=== PATIENT | female | born 1955 | race Caucasian/White ===

== ENCOUNTER 2016-07-06 12:12 | Emergency (ER) | payer MEDICARE ==
[~2016-07-06] VITALS: Ht 165.1 cm; Wt 80.0 kg
[~2016-07-06 12:12] MED LIST: ALLO100T PO; FURO1TAB93 PO; LACT10SO47 PO; PROP10TA26 PO; REST30CA PO; SENN8.8S7 PO; SOMA350T PO; SPIR50TA21 PO; STOO100C PO; VENL75CA44 PO
[2016-07-06 12:22] VITALS: BP 137/88; PULSE 101; RESP 16; TEMP 98.7; O2SAT 99
[2016-07-06 12:33] VITALS: BP 140/76; TEMP 98.7; O2SAT 95
--- NOTE | 2016-07-06 12:47 | PD ---
HPI Chief Complaint: Injury Time Seen by Provider: 12:46 Travel History International Travel<30 days: No Contact w/Intl Traveler<30days: No Traveled to known affect area: No History of Present Illness HPI 61-year-old female presents to the emergency department via EMS after tripping over a table on her porch and falling to her right side today. She reports right shoulder pain and cannot differentiate if she is having right rib pain. Denies neck pain or back pain. She denies hitting her head or loss of consciousness. Denies anticoagulants. Denies paresthesias, loss of sensation to the affected extremity. Reports decreased range of motion of the shoulder secondary to pain. Denies chest pain, shortness of breath, abdominal pain. Denies nausea, vomiting. Pain is aggravated with movement. Decreased while at rest. Patient's that she was given morphine. EMS did apply an arm sling for support. Dr. Rosenbaum is primary care provider. History of cirrhosis of the liver. Allergies to Ambien and codeine. PFSH Past Medical History Autoimmune Disease: Yes Blood Disorders: No Anxiety: Yes Depression: Yes Cancer: Yes (uterine & LEFT BREAST) Cardiovascular Problems: No Chemotherapy: No Cirrhosis: Yes Diabetes: No Diminished Hearing: No Endocrine: No Glaucoma: No Genitourinary: No Hepatitis: Yes (c) Neurologic: No Psychiatric: Yes Reproductive: Yes (HYSTERECTOMY AT 27 YEARS OLD) Respiratory: No Radiation Therapy: No Thyroid Disease: No Tetanus Vaccination: > 5 Years Menopausal: Yes Past Surgical History Abdominal Surgery: Yes (ESOPHAGEAL VARICIES) Gynecologic Surgery: Yes Hysterectomy: Yes (PARTIAL) Mastectomy: Yes (LEFT BREAST 2010) Other Surgery: Yes (hysterectomy, polyps, ) Social History Alcohol Use: No Tobacco Use: Yes ( PPD) Substance Use: No Allergies-Medications (Allergen,Severity, Reaction): Coded Allergies: Codeine (Verified Allergy, Severe, 10/20/14) Ambien (Verified Allergy, Mild, 10/20/14) Reported Meds & Prescriptions Reported Meds & Active Scripts Active Ibuprofen 800 Mg Tab 800 Mg PO Q6HR PRN Percocet (Oxycodone-Acetaminophen) 5-325 mg Tab 1-2 Tab PO Q6H PRN Senna (Sennosides) 8.8MG /5 Syp 8.8 Mg PO BID 30 Days Colace (Docusate Sodium) 100 Mg Cap 100 Mg PO BID Reported Venlafaxine Hcl75 M3 75 Mg Cap 1 Cap PO DAILY Soma (Carisoprodol) 350 Mg Tab 175 Mg PO DIRECTED Restoril 30 mg (Temazepam) 30 Mg Cap 1 Cap PO HS Lactulos1 30 Ml PO DAILY Spironolactone 50 Mg Tab 50 Mg PO BID Allopurinol 100 Mg Tab 100 Mg PO DAILY Furosemide 40 Mg Tab 40 Mg PO DAILY [id number] Mg 10 Mg Tab 10 Mg PO BID Review of Systems Except as stated in HPI: all other systems reviewed are Neg Physical Exam Narrative GENERAL: Well-nourished, well-developed female patient, in no acute distress SKIN: Warm and dry. HEAD: Atraumatic. Normocephalic. EYES: Pupils equal and round. No scleral icterus. No injection or drainage. ENT: Mucosa pink and moist. Airway patent. NECK: Moving freely. Supple. Trachea midline. Active rotation greater than 45 to the left and right. No midline point tenderness on palpation of the cervical spine. CHEST: Possible reproducible tenderness to the right lateral rib cage (patient is unable to differentiate pain to the area); without deformity or crepitance. No retractions or use of accessory muscles. CARDIOVASCULAR: Regular rate and rhythm. No murmur appreciated. RESPIRATORY: No accessory muscle use. Clear to auscultation. Breath sounds equal bilaterally. MUSCULOSKELETAL: Right shoulder without erythema, edema, ecchymosis; with tenderness on palpation to anterior and posterior aspects; with limited range of motion and abduction is less than 45; no obvious deformity; shoulders equal. Methods Study Analyst strength equal bilaterally. Right Elbow without erythema, edema, tenderness on palpation and with full range of motion. Right wrist without erythema, edema, tenderness on palpation and with full range of motion. Right upper extremity is supple and nontender with 2+ radial pulses and sensory intact. No obvious deformities. No clubbing. No cyanosis. No edema. NEUROLOGICAL: Awake and alert. Oriented 3. No obvious cranial nerve deficits. Motor grossly within normal limits. Normal speech. PSYCHIATRIC: Appropriate mood and affect; insight and judgment normal. Data Data Last Documented VS Vital Signs Date Time Temp Pulse Resp B/P Pulse Ox O2 Delivery O2 Flow Rate FiO2 07/06/16 17:45 73 19 145/79 94 07/06/16 12:33 98.7 Orders Ribs, Uni (W/Exp Cxr-Min 3vw) (07/06/16 12:47) Ct Brain W/O Iv Contrast(Rout) (07/06/16 ) Shoulder, Limited(2vws) (07/06/16 12:47) Morphine Inj (Morphine Inj) (07/06/16 13:30) Sling Cradle Arm (07/06/16 ) Sling Cradle Arm (07/06/16 ) MDM Medical Decision Making Medical Screen Exam Complete: Yes Emergency Medical Condition: Yes Medical Record Reviewed: Yes Differential Diagnosis Fall, sprain, fracture, dislocation Narrative Course 61-year-old female with right shoulder injury after a mechanical fall today arrives via EMS. Denies hitting her head or loss of consciousness. Denies neck pain or back pain. Denies anticoagulants. Received morphine 2mg on route. Morphine 4mg ordered. CT head, right rib with expiratory chest x-ray, and right shoulder x-ray ordered. 1350: CT head with no acute findings. 1423: Right rib and expiratory Chest x-ray with no acute findings. Right shoulder x-ray concludes Comminuted proximal right humeral fracture without dislocation. Call placed to orthopedic surgeon. 1623: I spoke with Dr. Mcdowell, orthopedic surgeon, and he recommended to place the patient in an arm sling and to follow up in the office. Ibuprofen and Percocet prescribed for home. Instructed patient to follow up with Dr. Mcdowell and she verbalized understanding and agreement of treatment plan. Patient is medically cleared and stable for discharge. Discussed reasons to return to the emergency department. Instructed patient to follow up with primary care provider. Patient agrees with treatment plan. The patients vital signs are stable and the patient is stable for outpatient follow-up and treatment. Patient discharged home, stable and in no acute distress. Diagnosis Primary Impression: Shoulder fracture, right Qualified Code: S42.91XA - Shoulder fracture, right, closed, initial encounter Referrals: Osbaldo Mcdowell Jr., MD Primary Care Physician Patient Instructions: Arm Fracture in Adults (ED), General Instructions Departure Forms: Tests/Procedures Additional Instructions: Tylenol or ibuprofen as needed and as directed to reduce pain and inflammation Rest, ice, and compress extremity to decrease pain and inflammation Arm sling for support Avoid aggravating activity; increase activity as tolerated Follow-up with primary care provider Follow-up with Dr. Mcdowell, orthopedic and his surgeon; his information is provided in her discharge instructions; call and make an appointment on July 07, 2016 for follow-up Return to the emergency department immediately with worsening symptoms Med/Other Pt SpecificInfo: Prescription(s) given Scripts Ibuprofen 800 Mg [id number] Mg PO Q6HR PRN (PAIN LESS THAN 5 ON SCALE) #30 TAB Ref 0 Prov:Lakesha Hernandez 07/06/16 Oxycodone-Acetaminophen (Percocet)5-325 mg Tab1-2 Tab PO Q6H PRN (PAIN GREATER THAN 5) #20 TAB Ref 0 Prov:Elmer Melo MD 07/06/16 Disposition: 01 DISCHARGE HOME Condition: Stable Lakesha Hernandez Jul 06, 2016 12:47
[2016-07-06] MEDS ORDERED: MORPHINE SULFATE 4 MG/ML INJ IV PUSH ONE (13:30)
--- NOTE | 2016-07-06 13:49 | RADRPT ---
EXAM DATE/TIME: 07/06/2016 13:27 [facility] COMPARISON: No previous studies available for comparison. INDICATIONS : Trauma. Trip and fall. RADIATION DOSE: 56.35 CTDIvol (mGy) MEDICAL HISTORY : Carcinoma, breast. Hepatitis C. Uterine cancer. SURGICAL HISTORY : Hysterectomy. Mastectomy, left. ENCOUNTER: Initial ACUITY: 1 day PAIN SCALE: 0/10 LOCATION: cranial TECHNIQUE: Multiple contiguous axial images were obtained of the head. Using automated exposure control and adj ustment of the mA and/or kV according to patient size, radiation dose was kept as low as reasonably a chievable to obtain optimal diagnostic quality images. FINDINGS: CEREBRUM: The ventricles are normal for age. No evidence of midline shift, mass lesion, hemorrhage or acute in farction. No extra-axial fluid collections are seen. POSTERIOR FOSSA: The cerebellum and brainstem are intact. The 4th ventricle is midline. The cerebellopontine angle i s unremarkable. EXTRACRANIAL: The visualized portion of the orbits is intact. SKULL: The calvaria is intact. No evidence of skull fracture. CONCLUSION: Normal examination for a patient of this age. Jaswinder Mathis MD on July 06, 2016 at 13:45 Board Certified Radiologist. This report was verified electronically.
--- NOTE | 2016-07-06 14:05 | RADRPT ---
EXAM DATE/TIME: 07/06/2016 13:23 [facility] COMPARISON: No previous studies available for comparison. INDICATIONS : Complains of right shoulder pain. MEDICAL HISTORY : Carcinoma, breast. SURGICAL HISTORY : None. ENCOUNTER: Initial ACUITY: 1 day PAIN SCORE: 0/10 LOCATION: Right ribs FINDINGS: There is a comminuted fracture of the right head and neck. No acute fractures identified in the right ribs. Minimal basilar atelectasis. No pneumothorax. CONCLUSION: 1. Slightly comminuted proximal right humeral fracture. Jaswinder Mathis MD on July 06, 2016 at 14:03 Board Certified Radiologist. This report was verified electronically.
--- NOTE | 2016-07-06 14:06 | RADRPT ---
EXAM DATE/TIME: 07/06/2016 13:24 [facility] COMPARISON: No previous studies available for comparison. INDICATIONS : Fell, complains of right shoulder pain. MEDICAL HISTORY : Carcinoma, breast. SURGICAL HISTORY : None. ENCOUNTER: Initial ACUITY: 1 day PAIN SCORE: 10/10 LOCATION: Right shoulder FINDINGS: There is a slightly comminuted proximal right humeral fracture involving humeral head and neck. No di slocation. CONCLUSION: 1. Comminuted proximal right humeral fracture without dislocation. Jaswinder Mathis MD on July 06, 2016 at 14:04 Board Certified Radiologist. This report was verified electronically.
[2016-07-06] MEDS ORDERED: PERC5TAB12 PO (16:28)
[2016-07-06] MEDS ORDERED: IBUP800T23 PO (16:29)
[2016-07-06 17:45] VITALS: BP 145/79
== END 2016-07-06 18:25 | disposition home or self-care (01) ==
LOC: NEDAMB 12:12
DX: S42.291A Other displaced fracture of upper end of right humerus, initial encounter for closed fracture (principal); K74.60 Unspecified cirrhosis of liver; F17.200 Nicotine dependence, unspecified, uncomplicated; Z86.2 Personal history of diseases of the blood and blood-forming organs and certain disorders involving the immune mechanism; Z86.59 Personal history of other mental and behavioral disorders; Z85.3 Personal history of malignant neoplasm of breast; Z85.42 Personal history of malignant neoplasm of other parts of uterus; Z86.19 Personal history of other infectious and parasitic diseases; W01.0XXA Fall on same level from slipping, tripping and stumbling without subsequent striking against object, initial encounter; Y92.008 Other place in unspecified non-institutional (private) residence as the place of occurrence of the external cause
CPT/HCPCS: 70450; 71101; 73030; 96374; 99284; J2270

== ENCOUNTER → 2016-09-16 | Outpatient (CLI) | payer MEDICARE ==
[~2016-09-16] MED LIST changes: +FURO40TA PO; +HYDR-3516 PO; +HYDR-3533 PO; +IBUP800T23 PO; +PANT40TA3 PO; +PERC5TAB12 PO; +PROP10TA6 PO; +SPIR50TA PO; +VENL37.5 PO; +VENL50TA PO
== END ==
LOC: ELAB 11:12
PROVIDERS: ATTEND Internal Medicine Gastroenterology
DX: C18.4 Malignant neoplasm of transverse colon (principal)
CPT/HCPCS: 36415; 82565; 84520

== ENCOUNTER 2016-09-30 13:56 | Outpatient (CLI) | payer MEDICARE ==
[~2016-09-30] VITALS: Ht 165.1 cm; Wt 80.3 kg
[~2016-09-30 13:56] MED LIST changes: -FURO40TA PO; -HYDR-3516 PO; -HYDR-3533 PO; -PANT40TA3 PO; -PROP10TA6 PO; -SPIR50TA PO; -VENL37.5 PO; -VENL50TA PO
[2016-09-30] MEDS ORDERED: CHLORHEXIDINE GLUCONATE 2 % 1 PACK (2 CLOTHS) TOPICAL PRN (14:45)
[2016-09-30] MEDS ORDERED: SODIUM CHLORID 0.9% 500 ML IV PRN (14:45)
[2016-09-30] MEDS ORDERED: INSULIN HUMAN REGULAR 1,000 UNITS/10 ML VIAL SQ PRN (14:45)
[2016-09-30] MEDS ORDERED: LACTATED RINGER'S 1000 ML IV PRN (14:45)
[2016-09-30] MEDS ORDERED: METOPROLOL TARTRATE 25 MG TAB PO PRN (14:45)
[2016-09-30] MEDS ORDERED: POVIDONE IODINE 5% (ANTISEPSIS KIT) 4 APPLICATIONS EACH NARE PRN (14:45)
[2016-09-30] MEDS ORDERED: VENL50TA PO (15:01)
[2016-09-30] MEDS ORDERED: HYDR-3516 PO (15:01)
[2016-09-30] MEDS ORDERED: FURO40TA PO (15:01)
[2016-09-30 15:02] VITALS: BP 149/74; PULSE 92; RESP 18; TEMP 98.7; O2SAT 96
[2016-09-30] MEDS ORDERED: PROPOFOL 200 MG/20 ML AMP IV ONE (16:05)
[2016-09-30 17:45] VITALS: BP 135/63
[2016-09-30 18:15] VITALS: PULSE 75; RESP 22; TEMP 98.4; O2SAT 99
--- NOTE | 2016-09-30 18:23 | RADRPT ---
EXAM DATE/TIME: 09/30/2016 17:55 [facility] COMPARISON: SHOULDER RIGHT LTD (2VWS), July 06, 2016, 13:24. INDICATIONS : Shortness of breath. MEDICAL HISTORY : None. SURGICAL HISTORY : None. ENCOUNTER: Initial ACUITY: 1 day PAIN SCORE: 0/10 LOCATION: Bilateral chest FINDINGS: The patient is rotated towards the right. The heart size is grossly normal in size. The lungs appea r grossly clear. No effusion is seen. The patient has a fracture deformity at the proximal right hum erus. CONCLUSION: 1. Rotated chest x-ray without acute cardiopulmonary process. 2. Fracture deformity at the proximal right humerus which appears chronic. Andrew Rivera MD on September 30, 2016 at 18:17 Board Certified Radiologist. This report was verified electronically.
--- NOTE | 2016-10-01 19:26 | EKG ---
Date Performed: 09/30/2016 Time Performed: 14:40:10 PTAGE: 61 years EKG: Sinus rhythm MINIMAL VOLTAGE CRITERIA FOR LVH, CONSIDER NORMAL VARIANT BORDERLINE ECG PREVIOUS TRACING : 05/26/2011 10.03 Compared to prior tracing no significant change DOCTOR: Shaye Issa Interpretating Date/Time 10/01/2016 19:25:28
--- NOTE | 2016-10-03 07:05 | MR ---
cc: KRISS REES DATE: 10/01/2016 INDICATIONS FOR PROCEDURE: The patient recently had colonoscopy with somewhat of a poor prep. We discovered a mass wall lesion of the transverse colon suspicious for adenocarcinoma on both inspection and on biopsy. Repeat exam is being performed to reevaluate the entire colon prior to surgery. Photographs were taken. Biopsies were taken. PREMEDICATIONS: Administered by Anesthesiology. MONITORING: Monitoring was accomplished with pulse oximeter, EKG and blood pressure monitor. PROCEDURE NOTE: After informed consent was obtained and the procedure, risks and benefits were explained, including the risks of bleeding, sepsis, perforation, risks of anesthesia, the patient was placed in the left lateral position. The video colonoscope was inserted into the rectum. There was some residual stool diffusely throughout the colon. This was lavaged as best possible. The descending colon and transverse colon were unremarkable. However, at the proximal transverse colon somewhat near the hepatic flexure, a 2-3 cm wall lesion was noted which had characteristics that appeared to be neoplastic. The lesion was biopsied x 2; it was firm and hard and friable. There was some difficulty maneuvering the pediatric colonoscope beyond this point due to angulation but we ultimately passed the scope beyond this into the ascending colon and the cecum. No other mass lesions were seen. There was residual stool, however, and smaller lesions could be missed. The scope was pulled back to the lesion in the transverse colon and the injection device was used repeat a tattoo below the lesion. It had previously been tattooed as well. The scope was removed. The patient tolerated the procedure well. She was sent to the recovery room in stable condition. 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 This was repeat biopsied at this time and also re-tattooed as well. PLAN: The patient is scheduled for surgery with Dr. Artis in the near future. We will follow up the biopsies obtained today. Followup postop and if stable will have the patient discharged. MD LINUS Farr/POLLY /4:45 PM /6:41 AM
== END 2016-09-30 18:38 | disposition home or self-care (01) ==
LOC: HEND 13:56
PROVIDERS: ATTEND Internal Medicine Gastroenterology
DX: D12.3 Benign neoplasm of transverse colon (principal); K63.89 Other specified diseases of intestine; R06.02 Shortness of breath; Z01.810 Encounter for preprocedural cardiovascular examination
CPT/HCPCS: 71010; 88305; 93005

== ENCOUNTER 2016-10-06 13:34 | Inpatient (IN) | payer MEDICARE ==
[~2016-10-06] VITALS: Ht 165.1 cm; Wt 85.0 kg
[~2016-10-06 13:34] MED LIST changes: -ALLO100T PO; -FURO1TAB93 PO; +FURO40TA PO; +HYDR-3516 PO; -IBUP800T23 PO; -LACT10SO47 PO; -PERC5TAB12 PO; -PROP10TA26 PO; -REST30CA PO; -SENN8.8S7 PO; -SOMA350T PO; -SPIR50TA21 PO; -STOO100C PO; -VENL75CA44 PO
[2016-10-07] MEDS ORDERED: PROP10TA6 PO (14:45)
[2016-10-07] MEDS ORDERED: ALLO100T PO (14:45)
[2016-10-07] MEDS ORDERED: VENL37.5 PO (14:46)
[2016-10-07] MEDS ORDERED: SPIR50TA PO (14:47)
[2016-10-07] MEDS ORDERED: PANT40TA3 PO (14:49)
[2016-10-11] MEDS ORDERED: NEOSTIGMINE 3 MG/3 ML SYR IV ONE (10:07)
[2016-10-11] MEDS ORDERED: PROPOFOL 200 MG/20 ML AMP IV ONE (10:07)
[2016-10-11] MEDS ORDERED: ONDANSETRON HCL 4 MG/2 ML VIAL IV PUSH ONE (10:07)
[2016-10-11] MEDS ORDERED: NORMOSOL R INJ 1,000 ML IV ONE (10:08)
[2016-10-11] MEDS ORDERED: POVIDONE IODINE 5% (ANTISEPSIS KIT) 4 APPLICATIONS EACH NARE PRN (12:30)
[2016-10-11] MEDS ORDERED: LACTATED RINGER'S 1000 ML IV PRN (12:30)
[2016-10-11] MEDS ORDERED: ceFAZolin 2 GM PREMIX 50 ML IV SCH (12:30)
[2016-10-11] MEDS ORDERED: SODIUM CHLORID 0.9% 500 ML IV PRN (12:30)
[2016-10-11] MEDS ORDERED: METRONIDAZOLE 500 MG/100 ML ISONTONIC SOLN IV SCH (12:30)
[2016-10-11] MEDS ORDERED: INSULIN HUMAN REGULAR 1,000 UNITS/10 ML VIAL SQ PRN (12:30)
[2016-10-11] MEDS ORDERED: CHLORHEXIDINE GLUCONATE 2 % 1 PACK (2 CLOTHS) TOPICAL PRN (12:30)
[2016-10-11] MEDS ORDERED: ALVIMOPAN 12 MG CAPSULE - On Call PO SCH (12:30)
[2016-10-11] MEDS ORDERED: METOPROLOL TARTRATE 25 MG TAB PO PRN (12:30)
[2016-10-11 12:36] VITALS: BP 155/72; PULSE 90; RESP 18; TEMP 98.3; O2SAT 97
[2016-10-11 13:02] LABS: AUTOMATED NEUTROPHIL # 3.4 TH/MM3 (1.8-7.7); BASOPHIL % 0.7 % (0.0-2.0); EOSINOPHIL # 0.1 TH/MM3 (0-0.4); EOSINOPHIL % 1.8 % (0.0-4.0); HEMO FLAGS DIFF FINAL; LYMPH % 16.2 % (9.0-44.0); LYMPHOCYTE # 0.8 TH/MM3 (1.0-4.8); MEAN CELL VOLUME 98.9 FL (80.0-100.0); MEAN CORPUSCULAR HEMOGLOBIN 32.6 PG (27.0-34.0); NEUT % 68.3 % (16.0-70.0); PLATELET COUNT 123 TH/MM3 (150-450); RED BLOOD COUNT 3.84 MIL/MM3 (4.00-5.30)
[2016-10-11 13:23] LABS: POTASSIUM 3.8 MEQ/L (3.5-5.1)
[2016-10-11] MEDS ORDERED: BUPIVACAINE/EPINEPHRINE 0.5% PF 30 ML VIAL ONE (15:45)
--- NOTE | 2016-10-11 16:19 | PD.OP ---
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 Anesthesia: general Surgeon: Janes Artis Pipe Wrapping Machine Operator(s): Dr Lance Ward Operation and Findings: multiple venous varicosities, terminal ileum, ascending colon, tattooed colon to pathology EBL 150 ml. Janes Artis MD October 11, 2016 16:19
[2016-10-11] MEDS ORDERED: *ONDANSETRON 4 MG VIAL PERIprocedural Use ONLY ONE (16:28)
[2016-10-11] MEDS ORDERED: *morphine SULFATE 8 MG/ML PERIprocedure ONLY ONE (16:29)
[2016-10-11] MEDS ORDERED: ACETAMINOPHEN/HYDROcodone 325 MG/5 MG TAB PO PRN (16:30)
[2016-10-11] MEDS ORDERED: Post-op Orders (for Pharmacy) MISC XX ONE (16:30)
[2016-10-11] MEDS ORDERED: MAGNESIUM HYDROXIDE SUSP 30 ML CUP PO PRN (16:30)
[2016-10-11] MEDS ORDERED: SODIUM CHLORIDE 0.9% FLUSH 10 ML FLUSH IV FLUSH PRN (16:30)
[2016-10-11] MEDS ORDERED: diphenhydrAMINE HCL 25 MG CAP PO PRN (16:30)
[2016-10-11] MEDS ORDERED: fentaNYL CITRATE 250 MCG/5 ML AMP ONE (16:32)
[2016-10-11] MEDS ORDERED: MORPHINE SULFATE 4 MG/ML INJ ONE (16:33)
[2016-10-11] MEDS ORDERED: *HYDROmorphone PF 1 MG VIAL PERIprocedural Use ONLY ONE (16:42)
[2016-10-11] MEDS: LACTATED RINGER'S 1000 ML INJ 1,000 ML IV SCH (17:00)
[2016-10-11 20:00] VITALS: PULSE 80; RESP 18; TEMP 97.9; O2SAT 92
[2016-10-11] MEDS: ACETAMINOPHEN/HYDROcodone 325 MG/5 MG TAB PO PRN (20:19)
[2016-10-11] MEDS: DOCUSATE SODIUM 100 MG CAP PO SCH (20:20)
[2016-10-11] MEDS: PROPRANOLOL HCL 10 MG TAB PO SCH (20:20)
[2016-10-11] MEDS: SODIUM CHLORIDE 0.9% FLUSH 10 ML FLUSH IV FLUSH SCH (20:22)
[2016-10-11] MEDS ORDERED: VENLAFAXINE 37.5 MG PO SCH (21:00)
[2016-10-11] MEDS ORDERED: ALVIMOPAN 12 MG CAPSULE PO SCH (21:00)
[2016-10-11] MEDS: VENLAFAXINE HCL XR 37.5 MG CAP PO SCH (21:34)
[2016-10-11] MEDS: HYDROmorphone HCL PF 1 MG/ML VIAL IV PRN (22:54)
[2016-10-11 23:28] VITALS: BP 156/64; PULSE 73; RESP 18; TEMP 97.1; O2SAT 94
[2016-10-12] VITALS (7 sets, daily range): BP systolic 132–155; BP diastolic 60–83; PULSE 55–82; RESP 16–18; TEMP 96.8–98.5; O2SAT 92–98
[2016-10-12] MEDS: ACETAMINOPHEN/HYDROcodone 325 MG/5 MG TAB PO PRN ×4 (01:42→19:06)
[2016-10-12] MEDS: LACTATED RINGER'S 1000 ML INJ 1,000 ML IV SCH ×3 (02:19→22:19)
[2016-10-12 07:28] LABS: AUTOMATED NEUTROPHIL # 7.3 TH/MM3 (1.8-7.7); BASOPHIL % 0.2 % (0.0-2.0); EOSINOPHIL % 0.1 % (0.0-4.0); HEMATOCRIT 33.9 % (35.0-46.0); HEMO FLAGS DIFF FINAL; LYMPH % 4.5 % (9.0-44.0); LYMPHOCYTE # 0.4 TH/MM3 (1.0-4.8); MEAN CELL VOLUME 98.7 FL (80.0-100.0); MEAN CORPUSCULAR HEMOGLOBIN 33.1 PG (27.0-34.0); MEAN CORPUSCULAR HGB CONC 33.6 % (32.0-36.0); MONO % 6.4 % (0.0-8.0); NEUT % 88.8 % (16.0-70.0); PLATELET COUNT 111 TH/MM3 (150-450); RED BLOOD COUNT 3.44 MIL/MM3 (4.00-5.30); RED CELL DISTRIBUTION WIDTH 14.9 % (11.6-17.2); WHITE BLOOD COUNT 8.2 TH/MM3 (4.0-11.0)
[2016-10-12] MEDS: VENLAFAXINE HCL XR 37.5 MG CAP PO SCH ×2 (07:28→20:36)
[2016-10-12] MEDS: PANTOPRAZOLE SOD 40 MG DELAYED RELEASE TAB PO SCH (07:28)
[2016-10-12] MEDS: DOCUSATE SODIUM 100 MG CAP PO SCH ×2 (07:28→20:35)
[2016-10-12] MEDS: PROPRANOLOL HCL 10 MG TAB PO SCH ×2 (07:29→20:37)
[2016-10-12] MEDS: SPIRONOLACTONE 50 MG TAB PO SCH (07:29)
[2016-10-12] MEDS: ALVIMOPAN 12 MG CAPSULE - Post-op dosing PO SCH ×2 (07:29→20:36)
[2016-10-12] MEDS: ALLOPURINOL 100 MG TAB PO SCH (07:29)
[2016-10-12] MEDS: FUROSEMIDE 40 MG TAB PO SCH (07:29)
[2016-10-12] MEDS: SODIUM CHLORIDE 0.9% FLUSH 10 ML FLUSH IV FLUSH SCH ×2 (07:32→20:43)
--- NOTE | 2016-10-12 07:47 | HHI.PR ---
Subjective Subjective Notes Doing well overall. Appropriate postop discomfort. Slept a few hours. No flatus or BM yet. No nausea, tolerated liquids. Objective Vitals/I&O Vital Signs Date Time Temp Pulse Resp B/P Pulse Ox O2 Delivery O2 Flow Rate FiO2 10/12/16 07:33 Room Air 10/12/16 04:10 96.8 55 18 150/62 93 10/11/16 21:30 2.00 Labs Laboratory Tests Test 10/11/16 10/12/16 12:40 06:51 White Blood Count 5.0 8.2 Red Blood Count 3.84 3.44 Hemoglobin 12.5 11.4 Hematocrit 38.0 33.9 Mean Corpuscular Volume 98.9 98.7 Mean Corpuscular Hemoglobin 32.6 33.1 Mean Corpuscular Hemoglobin 33.0 33.6 Concent Red Cell Distribution Width 15.0 14.9 Platelet Count 123 111 Mean Platelet Volume 9.2 10.0 Neutrophils (%) (Auto) 68.3 88.8 Lymphocytes (%) (Auto) 16.2 4.5 Monocytes (%) (Auto) 13.0 6.4 Eosinophils (%) (Auto) 1.8 0.1 Basophils (%) (Auto) 0.7 0.2 Neutrophils # (Auto) 3.4 7.3 Lymphocytes # (Auto) 0.8 0.4 Monocytes # (Auto) 0.7 0.5 Eosinophils # (Auto) 0.1 0.0 Basophils # (Auto) 0.0 0.0 CBC Comment DIFF FINAL DIFF FINAL Differential Comment Sodium Level 139 Potassium Level 3.8 Chloride Level 107 Carbon Dioxide Level 24.0 Anion Gap 8 Blood Urea Nitrogen 7 Creatinine 0.49 Estimat Glomerular Filtration 128 Rate Random Glucose 67 Calcium Level 9.1 Blood Type AB POSITIVE Antibody Screen NEGATIVE Blood Bank Comment Cardiovascular: Regular Lungs: Clear Abdomen: Non-distended, Other (Dressing dry, no drainage.), Post-op tenderness , BS normal Extremities: No edema, Perfused, SCD's on A/P Assessment and Plan POD 1 R colon resection. Path pending. Doing well. Walk halls today. Advance diet as tolerated. Home when having BMs, tolerating po pain meds. Janes Artis MD October 12, 2016 07:47
[2016-10-12 08:01] LABS: BICARBONATE 24.1 MEQ/L (21.0-32.0); POTASSIUM 4.4 MEQ/L (3.5-5.1)
[2016-10-12] MEDS: ENOXAPARIN SODIUM 30 MG/0.3 ML SYRINGE SQ SCH (15:28)
[2016-10-12] MEDS: HYDROmorphone HCL PF 1 MG/ML VIAL IV PRN (20:43)
[2016-10-13 00:23] VITALS: BP 128/71; PULSE 55; RESP 17; TEMP 97.1; O2SAT 94
[2016-10-13] MEDS: ACETAMINOPHEN/HYDROcodone 325 MG/5 MG TAB PO PRN ×4 (03:36→20:29)
[2016-10-13] MEDS: LACTATED RINGER'S 1000 ML INJ 1,000 ML IV SCH ×2 (07:29→18:19)
--- NOTE | 2016-10-13 07:36 | HHI.PR ---
Subjective Subjective Notes Passing some flatus but feels a little distended. No Bm yet. No nausea , pain meds effective. Objective Vitals/I&O Vital Signs Date Time Temp Pulse Resp B/P Pulse Ox O2 Delivery O2 Flow Rate FiO2 10/13/16 00:23 97.1 55 17 128/71 94 10/12/16 16:39 21 10/12/16 07:33 Room Air 10/11/16 21:30 2.00 Cardiovascular: Regular Lungs: Clear Abdomen: Non-distended, Other, Post-op tenderness, BS normal Extremities: No edema, Perfused, SCD's on (incision healing well without erythema, minimal ecchymosis.) A/P Assessment and Plan POD 2 R colon resection. Path pending. Doing well. Walk halls today, do laps around the floor. regular diet, coffee. Home when having BMs, tolerating po pain meds, hopefully in next two days. Janes Artis MD October 13, 2016 07:36
[2016-10-13 08:00] VITALS: BP 130/70; PULSE 57; RESP 20; TEMP 96.9; O2SAT 95
[2016-10-13] MEDS: VENLAFAXINE HCL XR 37.5 MG CAP PO SCH ×2 (08:23→20:28)
[2016-10-13] MEDS: ALLOPURINOL 100 MG TAB PO SCH (08:23)
[2016-10-13] MEDS: PROPRANOLOL HCL 10 MG TAB PO SCH ×2 (08:23→20:28)
[2016-10-13] MEDS: SODIUM CHLORIDE 0.9% FLUSH 10 ML FLUSH IV FLUSH SCH ×2 (08:23→20:29)
[2016-10-13] MEDS: SPIRONOLACTONE 50 MG TAB PO SCH (08:24)
[2016-10-13] MEDS: DOCUSATE SODIUM 100 MG CAP PO SCH ×2 (08:24→20:28)
[2016-10-13] MEDS: ALVIMOPAN 12 MG CAPSULE - Post-op dosing PO SCH ×2 (08:24→20:28)
[2016-10-13] MEDS: PANTOPRAZOLE SOD 40 MG DELAYED RELEASE TAB PO SCH (08:24)
[2016-10-13] MEDS: FUROSEMIDE 40 MG TAB PO SCH (08:24)
--- NOTE | 2016-10-13 10:38 | MP ---
cc: KRISS PERLA M.D., DAVID G. M.D. DATE OF SURGERY 10/11/2016 PREOPERATIVE DIAGNOSIS Villous adenoma hepatic flexure suspicious for adenocarcinoma and cirrhosis. POSTOPERATIVE DIAGNOSES Villous adenoma hepatic flexure suspicious for adenocarcinoma and cirrhosis. PROCEDURE Open ascending colectomy SURGEON Dr. Janes Artis MIX TECHNICIAN Dr. Lance Ward ANESTHESIA General INDICATIONS This is a 61-year-old patient of Dr. Enoch Perla sent to me for evaluation for colon resection due to findings suspicious for colon cancer of the hepatic flexure. The patient has a significant history of cirrhosis, but is overall fairly functional. She is well-known to me from prior left mastectomy for breast cancer. INTRAOPERATIVE FINDINGS Multiple venous varicosities in the subcutaneous tissue, abdominal wall and intra-abdominal. Severe desmoplastic reaction of the peritoneum of unknown etiology. The terminal ileum, ascending colon and tattooed portion of colon, proximal or distal colon was removed and sent to pathology. Estimated blood loss 150 mL DESCRIPTION OF PROCEDURE IN DETAIL The patient identified as Berna Lizarraga, taken to the operating room, placed in the placed supine position. Sequential compression devices were placed on bilateral lower extremities. Following induction of adequate general endotracheal anesthesia, the patient's abdomen was prepped and draped in the usual sterile fashion with Betadine. A time-out procedure was performed. Following completion of the time-out procedure to everyone's satisfaction within the room. A transverse incision from just above the umbilicus and to the right was carried out with scalpel. Hemostasis was control with electrocautery. Careful dissection and division of large venous varicosities and subcutaneous tissue was performed with a harmonic scalpel. The dissection lead down to the anterior fascia which was opened with electrocautery. The underlying rectus muscle was divided with the harmonic scalpel. The peritoneum was entered with a hemostat and peritoneal incision was opened the length of the skin incision. Lateral dissection did divide the anterior portions of the oblique musculature. An Dannie wound protector was placed into the abdominal cavity and exploration ensued. There was severe inflammation of the omentum to the peritoneum anteriorly from the midline laterally. There did not be appear to be a tumorous etiology to this. Similar desmoplastic reaction was noted in the right lateral side wall. Attention was turned first to identification of the tumorous location which was easily identified due to tattooing just adjacent to the hepatic flexure. A site about 8-10 cm distal to this was selected for division of the colon. The omentum was released along the avascular plane and a window was made at the mesentery. The RAN type linear cutting stapling device was used to divide the colon. The mesentery was taken down using a harmonic scalpel and Krysten clamps and 2-0 Vicryl ties as the venous vasculature was dilated. The hepatic flexure was mobilized using the harmonic scalpel. The lateral abdominal sidewall where the white line of Toldt should be consisted of a severe thickened desmoplastic reaction of unknown etiology. The liver was noted to be diffusely cirrhotic. The gallbladder was distended, but had no adhesions. Harmonic scalpel and careful dissection allowed for mobilization of the ascending colon and a site was selected in the terminal ileum for division. A mesenteric window was created and the linear cutting stapling device was fired across the ileum. The mesentery was then divided carefully using a combination of harmonic scalpel and Krysten clamps and 2-0 Vicryl ties. This allowed for removal of the entire specimen which was passed off field for pathologic evaluation. The right tube and ovary were involved in this desmoplastic reaction on the right side, but were avoided. There was no obvious tumor involvement of the right ovary. The wound was irrigated copiously with saline. There was no evidence of hemorrhage. A functional end-to-end, kien-wr-iqxe anastomosis was then performed of the small bowel to the transverse colon. This was performed using a linear cutting stapling device and 3-0 silk sutures. Omentum was draped over this area. Silk suture was used to reinforce the distal staple line and to close the mesenteric defect. Again copious irrigation with saline ensued. There was no spillage of bowel contents. The area of dissection was covered in Patricia absorbable hemostatic agent. The patients abdominal wall was closed in two layers using running #1 single stranded PDS sutures. Irrigation ensued between layers. About 50 cc of local anesthetic 0.25% Marcaine with epinephrine was injected in the layers of the fascia and abdominal wall. The anterior fascia was closed with running #1 single stranded PDS suture. Subcutaneous layer was irrigated. The subcutaneous fatty tissue was approximated with interrupted inverted 2-0 Vicryl sutures. Skin was approximated with 4-0 Monocryl running subcuticular suture and dressed with Mastisol, half-inch brown Steri-Strips and a Primapore type dressing. An abdominal binder was to be placed. The patient tolerated the procedure without apparent complication. Sponge, needle and instrument counts were correct at the end of the case. MD DIANE Downing/OCTAVIANO /4:31 PM /10:21 AM
[2016-10-13 11:39] VITALS: O2SAT 95
[2016-10-13 12:00] VITALS: BP 126/77; PULSE 114; RESP 19; TEMP 97; O2SAT 96
[2016-10-13] MEDS: ENOXAPARIN SODIUM 30 MG/0.3 ML SYRINGE SQ SCH (15:24)
[2016-10-13 16:00] VITALS: BP 118/56; PULSE 54; RESP 19; TEMP 96.9; O2SAT 96
[2016-10-13 20:00] VITALS: BP 130/60; PULSE 56; RESP 20; TEMP 97.3; O2SAT 96
[2016-10-14] VITALS: BP 109/53; PULSE 59; RESP 19; TEMP 97.3; O2SAT 93
[2016-10-14] MEDS: ACETAMINOPHEN/HYDROcodone 325 MG/5 MG TAB PO PRN ×2 (01:36→06:06)
[2016-10-14] MEDS: LACTATED RINGER'S 1000 ML INJ 1,000 ML IV SCH (03:35)
[2016-10-14] MEDS ORDERED: HYDR-3533 PO (07:18)
--- NOTE | 2016-10-14 07:21 | HHI.DS ---
Discharge Summary Admission Date October 11, 2016 at 11:49 Discharge Date: October 14, 2016 Admitting Diagnosis villous adenoma colon, suspicious for cancer Procedures Open R colon resection Brief History 61 [address] old patient of Dr Perla with cirrhosis and villous adenoma suspicious for cancer in hepatic flexure. CBC/BMP: 10/12/16 0651 10/12/16 0651 Significant Findings Laboratory Tests Test 10/11/16 10/12/16 12:40 06:51 Red Blood Count 3.84 MIL/MM3 3.44 MIL/MM3 (4.00-5.30) (4.00-5.30) Platelet Count 123 TH/MM3 111 TH/MM3 (150-450) (150-450) Monocytes (%) (Auto) 13.0 % (0.0-8.0) Lymphocytes # (Auto) 0.8 TH/MM3 0.4 TH/MM3 (1.0-4.8) (1.0-4.8) Creatinine 0.49 MG/DL (0.50-1.00) Random Glucose 67 MG/DL 134 MG/DL (74-106) (74-106) Hemoglobin 11.4 GM/DL (11.6-15.3) Hematocrit 33.9 % (35.0-46.0) Neutrophils (%) (Auto) 88.8 % (16.0-70.0) Lymphocytes (%) (Auto) 4.5 % (9.0-44.0) Sodium Level 135 MEQ/L (136-145) Estimat Glomerular Filtration 86 ML/MIN (>89) Rate PE at Discharge lungs clear, HR regular, abdomen soft, postop tenderness, incision healing well , no erythema or drainage. No extremity swelling. Hospital Course Admitted through [facility], taken to surgery, recovered well postop. Tolerating po, voiding, having BMs. Wants to go home. Pt Condition on Discharge: Good Discharge Disposition: Discharge Home Discharge Instructions DIET: Follow Instructions for: As Tolerated, No Restrictions Additional Diet Instructions: laxative as needed Activities you can perform: Shower Only-No Bath Activities to Avoid: Strenuous Activity Janes Artis MD October 14, 2016 07:21
[2016-10-14 08:00] VITALS: BP 104/52; PULSE 53; RESP 20; TEMP 97.1; O2SAT 95
[2016-10-14] MEDS: VENLAFAXINE HCL XR 37.5 MG CAP PO SCH (09:19)
[2016-10-14] MEDS: SPIRONOLACTONE 50 MG TAB PO SCH (09:19)
[2016-10-14] MEDS: PROPRANOLOL HCL 10 MG TAB PO SCH (09:19)
[2016-10-14] MEDS: ALVIMOPAN 12 MG CAPSULE - Post-op dosing PO SCH (09:19)
[2016-10-14] MEDS: DOCUSATE SODIUM 100 MG CAP PO SCH (09:19)
[2016-10-14] MEDS: FUROSEMIDE 40 MG TAB PO SCH (09:19)
[2016-10-14] MEDS: PANTOPRAZOLE SOD 40 MG DELAYED RELEASE TAB PO SCH (09:19)
[2016-10-14] MEDS: ALLOPURINOL 100 MG TAB PO SCH (09:19)
[2016-10-14] MEDS: SODIUM CHLORIDE 0.9% FLUSH 10 ML FLUSH IV FLUSH SCH (09:19)
[2016-10-14 09:20] VITALS: O2SAT 94
== END 2016-10-14 11:02 | disposition home or self-care (01) | DRG 331 ==
LOC: HSDI 10-11 11:49 → HCIS 10-11 16:33 → N07B 10-11 16:40
PROVIDERS: ADMIT Surgery Trauma Surgery; ATTEND Surgery Trauma Surgery
PROC: 0DTK0ZZ Resection of Ascending Colon, Open Approach (ICD-10-PCS; principal; 2016-10-11 13:55)
DX: C18.3 Malignant neoplasm of hepatic flexure (principal); K66.8 Other specified disorders of peritoneum; K74.60 Unspecified cirrhosis of liver; I86.8 Varicose veins of other specified sites; J44.9 Chronic obstructive pulmonary disease, unspecified; Z85.3 Personal history of malignant neoplasm of breast; Z90.12 Acquired absence of left breast and nipple; I10 Essential (primary) hypertension; F17.210 Nicotine dependence, cigarettes, uncomplicated; K21.9 Gastro-esophageal reflux disease without esophagitis; B19.20 Unspecified viral hepatitis C without hepatic coma; F10.10 Alcohol abuse, uncomplicated; M25.511 Pain in right shoulder
CPT/HCPCS: 80048; 85025; 86850; 86900; 86901; 88309; 94150; J0690; J1170; J1650; J2270; J2405; J2710; J3010; J7120